=== PATIENT | female | born 1995 | race Caucasian/White ===

== ENCOUNTER 2019-03-09 18:30 | Inpatient (IN) | payer MEDICAID, OTHER ==
[2019-03-09] MEDS ORDERED: HYDROmorphONE 1 MG/ML SYG ×2 (18:56→20:17)
[2019-03-09 19:31] LABS: ADD MAN DIFF? NO
[2019-03-09 19:34] LABS: WHITE BLOOD COUNT 13.2 10^3/ul (4.8-10.8)
[2019-03-09 19:34] LABS: BASOPHILS % 0.2 % (0.0-2.0); EOSINOPHILS # 0.1 10^3/ul (0.0-0.5); EOSINOPHILS % 0.6 % (0.0-7.0); HEMOGLOBIN 14.1 g/dl (12.0-16.0); LYMPHOCYTES # 3.4 10^3/ul (0.8-2.9); LYMPHOCYTES % 25.5 % (15.0-51.0); MEAN CORPUSCULAR HEMOGLOBIN 30.5 pg (29.0-33.0); MEAN CORPUSCULAR HGB CONC 34.4 g/dl (32.0-37.0); MEAN CORPUSCULAR VOLUME 88.6 fl (82.0-101.0); MEAN PLATELET VOLUME 9.9 fl (7.4-10.4); MONOCYTE # 0.8 10^3/ul (0.3-0.9); MONOCYTES % 6.1 % (0.0-11.0); NEUTROPHIL # 8.9 10^3/ul (1.6-7.5); PLATELET COUNT 356 10^3/UL (140-415); RED BLOOD COUNT 4.63 10^6/ul (4.20-5.40)
[2019-03-09 19:37] LABS: PARTIAL THROMBOPLASTIN TIME 25.8 Sec (23.0-35.0); PROTIME 13.3 Sec (11.9-14.9)
[2019-03-09 19:42] LABS: ALANINE AMINOTRANSFERASE 19 IU/L (13-69); ALBUMIN 4.6 g/dl (3.3-4.9); ALBUMIN/GLOBULIN RATIO 1.15; ALKALINE PHOSPHATASE 87 IU/L (42-121); ANION GAP 14 (5-13); ASPARTATE AMINO TRANSFERASE 27 IU/L (15-46); BILIRUBIN,INDIRECT 0.3 mg/dl (0-1.1); BILIRUBIN,TOTAL 0.3 mg/dl (0.2-1.3); BLOOD UREA NITROGEN 12 mg/dl (7-20); CARBON DIOXIDE 22 mmol/L (21-31); CHLORIDE 105 mmol/L (97-110); CREATININE 0.56 mg/dl (0.44-1.00); Estimated GFR > 60 mL/min (>60); GLUCOSE 111 mg/dl (70-220); LIPASE 40 U/L (23-300); POTASSIUM 3.2 mmol/L (3.5-5.1); SODIUM 141 mmol/L (135-144); TOTAL PROTEIN 8.6 g/dl (6.1-8.1)
[2019-03-09 19:53] LABS: TROPONIN-I < 0.012 ng/ml (0.000-0.120)
[2019-03-09] MEDS ORDERED: NACL 0.9% 3 ML SYG IV (20:30)
[2019-03-09] MEDS ORDERED: HYDROCODONE/APAP (5/325) TAB PO ×2 (20:30)
[2019-03-09] MEDS: POTASSIUM CHLORIDE (SR) 20 MEQ TAB PO (20:32)
[2019-03-09] MEDS ORDERED: ACETAMINOPHEN 325 MG TAB PO (21:00)
[2019-03-09] MEDS ORDERED: HEPARIN 5,000 UNIT/1 ML VIAL SC (21:00)
[2019-03-09] MEDS ORDERED: ONDANSETRON 4 MG INJ IV (21:00)
[2019-03-09] MEDS: SOD CHLORIDE 0.9% 1,000 ML IV ×2 (21:09→23:46)
[2019-03-09 21:20] LABS: ADD UMIC YES; UR ASCORBIC ACID NEGATIVE (NEGATIVE); UR BACTERIA FEW /HPF (NONE SEEN); UR BILIRUBIN (Dip) NEGATIVE (NEGATIVE); UR BLOOD (Dip) NEGATIVE (NEGATIVE); UR CLARITY SLIGHTLY CLOUDY (CLEAR); UR COLOR YELLOW (YELLOW); UR GLUCOSE (Dip) NEGATIVE (NEGATIVE); UR KETONES (Dip) TRACE mg/dL (NEGATIVE); UR LEUKOCYTE ESTERASE (Dip) TRACE Leu/ul (NEGATIVE); UR MUCUS FEW /HPF (NONE SEEN); UR NITRITE (Dip) NEGATIVE (NEGATIVE); UR RBC 1 /HPF (0-5); UR TOTAL PROTEIN (Dip) NEGATIVE (NEGATIVE); UR UROBILINOGEN (Dip) NEGATIVE (NEGATIVE); UR WBC 1 /HPF (0-5)
[2019-03-09 21:33] LABS: LACTIC ACID 1.5 mmol/L (0.5-2.0)
[2019-03-09] MEDS: HYDROmorphONE 2 MG/ML SYG IV (22:04)
[2019-03-09] MEDS: CEFTRIAXONE 1 GM/50 ML (PMX) 50 ML IVPB (23:59)
[2019-03-09] MEDS: ONDANSETRON 4 MG INJ IV (23:59)
[2019-03-10] MEDS: DIAZEPAM 2 MG TAB PO (00:19)
[2019-03-10] MEDS: DIAZEPAM 5 MG/ML SYG IV ×2 (00:39→00:48)
[2019-03-10] MEDS: HYDROmorphONE 1 MG/ML SYG IV ×3 (03:47→12:17)
[2019-03-10 05:10] LABS: ADD MAN DIFF? NO
[2019-03-10 05:14] LABS: WHITE BLOOD COUNT 10.5 10^3/ul (4.8-10.8)
[2019-03-10 05:14] LABS: BASOPHILS % 0.2 % (0.0-2.0); HEMATOCRIT 35.6 % (37.0-47.0); HEMOGLOBIN 12.2 g/dl (12.0-16.0); LYMPHOCYTES # 1.2 10^3/ul (0.8-2.9); LYMPHOCYTES % 11.6 % (15.0-51.0); MEAN CORPUSCULAR HEMOGLOBIN 30.9 pg (29.0-33.0); MEAN CORPUSCULAR HGB CONC 34.3 g/dl (32.0-37.0); MEAN CORPUSCULAR VOLUME 90.1 fl (82.0-101.0); MEAN PLATELET VOLUME 9.8 fl (7.4-10.4); MONOCYTE # 0.9 10^3/ul (0.3-0.9); MONOCYTES % 8.5 % (0.0-11.0); NEUTROPHIL # 8.3 10^3/ul (1.6-7.5); NEUTROPHILS % 79.3 % (39.0-77.0); PLATELET COUNT 310 10^3/UL (140-415); RED BLOOD COUNT 3.95 10^6/ul (4.20-5.40)
[2019-03-10 06:17] LABS: B-TYPE NATRIURETIC PEPTIDE 92 PG/ML (0-125)
[2019-03-10 06:40] LABS: ALANINE AMINOTRANSFERASE 16 IU/L (13-69); ALBUMIN 3.8 g/dl (3.3-4.9); ALBUMIN/GLOBULIN RATIO 1.05; ALKALINE PHOSPHATASE 71 IU/L (42-121); ANION GAP 10 (5-13); ASPARTATE AMINO TRANSFERASE 28 IU/L (15-46); BILIRUBIN,INDIRECT 0.3 mg/dl (0-1.1); BILIRUBIN,TOTAL 0.3 mg/dl (0.2-1.3); BLOOD UREA NITROGEN 8 mg/dl (7-20); CARBON DIOXIDE 23 mmol/L (21-31); CHLORIDE 107 mmol/L (97-110); CREATININE 0.43 mg/dl (0.44-1.00); Estimated GFR > 60 mL/min (>60); GLUCOSE 122 mg/dl (70-220); PHOSPHORUS 3.4 mg/dl (2.5-4.9); POTASSIUM 3.8 mmol/L (3.5-5.1); SODIUM 140 mmol/L (135-144); TOTAL PROTEIN 7.4 g/dl (6.1-8.1)
[2019-03-10] MEDS: SOD CHLORIDE 0.9% 1,000 ML IV ×2 (07:01→16:28)
[2019-03-10] MEDS: ONDANSETRON 4 MG INJ IV (10:14)
[2019-03-10 11:58] LABS: HEMOGLOBIN A1C 5.1 % (0-5.9)
[2019-03-10] MEDS: CEFTRIAXONE 500 MG in SOD CHLORIDE 0.9% 50 ML IVPB (12:25)
[2019-03-10] MEDS ORDERED: FENTAnyl 50 MCG/ML VIAL (18:40)
[2019-03-10] MEDS ORDERED: NEOSTIGMINE 3 MG/3 ML SYRINGE (18:40)
[2019-03-10] MEDS ORDERED: GLYCOPYRROLATE 0.4 MG INJ (18:40)
[2019-03-10] MEDS ORDERED: MIDAZOLAM 1 MG/ML 2 ML INJ (18:40)
[2019-03-10] MEDS ORDERED: CEFAZOLIN 1 GM INJ (18:40)
[2019-03-10] MEDS ORDERED: PROPOFOL 20 ML (18:40)
[2019-03-10] MEDS ORDERED: ROCURONIUM 50 MG INJ (18:40)
[2019-03-10] MEDS ORDERED: DEXAMETHASONE 4 MG/ML 5 ML INJ (18:41)
[2019-03-10] MEDS ORDERED: ONDANSETRON 4 MG INJ (18:41)
[2019-03-10] MEDS ORDERED: morphine SULFATE/PF (10 MG/10 ML) INJ (18:42)
[2019-03-10] MEDS: POLYMYXIN/BACITRACIN 1L IRRIG IRR (19:29)
[2019-03-10] MEDS ORDERED: NALOXONE (0.4 MG/ML) INJ IV (19:30)
[2019-03-10] MEDS ORDERED: DIPHENHYDRAMINE 50 MG INJ IV ×2 (19:30)
[2019-03-10] MEDS ORDERED: MEPERIDINE 25 MG INJ IV (19:30)
[2019-03-10] MEDS ORDERED: OXYCODONE/ACETAMINOPHEN (5/325) TAB PO ×2 (19:30)
[2019-03-10] MEDS ORDERED: ZOLPIDEM 5 MG TAB PO (19:30)
[2019-03-10] MEDS ORDERED: KETOROLAC 30 MG INJ IV (19:30)
[2019-03-10] MEDS ORDERED: ALBUTEROL 0.083% (NEB) 2.5 MG/3 ML AMP HHN (19:30)
[2019-03-10] MEDS ORDERED: EPHEDrine SULFATE 50 MG/5 ML SYG IV (19:30)
[2019-03-10] MEDS ORDERED: FENTAnyl 50 MCG/ML VIAL IV ×3 (19:30)
[2019-03-10] MEDS ORDERED: ONDANSETRON 4 MG INJ IV (19:30)
[2019-03-10] MEDS ORDERED: IPRATROPIUM (NEB) 0.5 MG/2.5 ML AMP HHN (19:30)
[2019-03-10] MEDS ORDERED: TRIMETHOBENZAMIDE 100 MG/ML VIAL IM ×2 (19:30)
[2019-03-10] MEDS ORDERED: hydrALAzine 20 MG INJ IV (19:30)
[2019-03-10] MEDS ORDERED: HYDROmorphONE 1 MG/5 ML IV SYRINGE IV ×3 (19:30)
[2019-03-10] MEDS ORDERED: MIDAZOLAM 1 MG/ML 2 ML INJ IV (19:30)
[2019-03-10] MEDS ORDERED: NALBUPHINE HCL (10 MG/1 ML) INJ IV (19:30)
[2019-03-10] MEDS ORDERED: LABETALOL HCL 20MG INJ IV (19:30)
[2019-03-10] MEDS ORDERED: HYDROmorphONE 0.5 MG/0.5 ML SYG IV ×2 (19:30)
[2019-03-10] MEDS ORDERED: POLYMYXIN/BACITRACIN 1L IRRIG (23:31)
[2019-03-11] MEDS ORDERED: SUGAMMADEX SODIUM 200 MG/2 ML VIAL IV (00:10)
[2019-03-11] MEDS: ONDANSETRON 4 MG INJ IV ×2 (00:53→01:11)
[2019-03-11] MEDS ORDERED: oxyCODONE 15 MG TAB PO (01:00)
[2019-03-11] MEDS: SOD CHLORIDE 0.9% 1,000 ML IV (04:19)
[2019-03-11 05:11] LABS: ADD MAN DIFF? NO
[2019-03-11 05:22] LABS: WHITE BLOOD COUNT 10.4 10^3/ul (4.8-10.8)
[2019-03-11 05:22] LABS: ABNORMAL IP MESSAGE 1; BASOPHILS % 0.1 % (0.0-2.0); HEMATOCRIT 34.8 % (37.0-47.0); HEMOGLOBIN 11.5 g/dl (12.0-16.0); LYMPHOCYTES # 0.5 10^3/ul (0.8-2.9); LYMPHOCYTES % 4.6 % (15.0-51.0); MEAN CORPUSCULAR HEMOGLOBIN 30.6 pg (29.0-33.0); MEAN CORPUSCULAR VOLUME 92.6 fl (82.0-101.0); MEAN PLATELET VOLUME 9.6 fl (7.4-10.4); MONOCYTE # 0.3 10^3/ul (0.3-0.9); NEUTROPHIL # 9.6 10^3/ul (1.6-7.5); NEUTROPHILS % 91.9 % (39.0-77.0); PLATELET COUNT 248 10^3/UL (140-415); RED BLOOD COUNT 3.76 10^6/ul (4.20-5.40); RED CELL DISTRIBUTION WIDTH 12.3 % (11.5-14.5)
[2019-03-11 05:27] LABS: POSITIVE DIFF @See below
[2019-03-11 05:33] LABS: ANION GAP 8 (5-13); BLOOD UREA NITROGEN 3 mg/dl (7-20); CALCIUM 8.8 mg/dl (8.4-10.2); CARBON DIOXIDE 25 mmol/L (21-31); CHLORIDE 107 mmol/L (97-110); CREATININE 0.42 mg/dl (0.44-1.00); Estimated GFR > 60 mL/min (>60); GLUCOSE 129 mg/dl (70-220); POTASSIUM 3.6 mmol/L (3.5-5.1); SODIUM 140 mmol/L (135-144)
[2019-03-11] MEDS: CEFAZOLIN 1 GM/50 ML (PMX) 50 ML IVPB ×3 (05:54→21:53)
[2019-03-11] MEDS: DEXAMETHASONE 10 MG/ML 1 ML INJ IV (09:40)
[2019-03-11] MEDS: ENOXAPARIN 40 MG/0.4 ML SYG SC (09:41)
[2019-03-11] MEDS: oxyCODONE 5 MG TAB PO ×2 (14:08→20:34)
[2019-03-11] MEDS: PHENAZOPYRIDINE 100 MG TAB PO (17:52)
[2019-03-11 20:52] LABS: ADD UMIC YES; UR ASCORBIC ACID NEGATIVE (NEGATIVE); UR BACTERIA FEW /HPF (NONE SEEN); UR BILIRUBIN (Dip) NEGATIVE (NEGATIVE); UR BLOOD (Dip) 3+ mg/dL (NEGATIVE); UR CLARITY CLEAR (CLEAR); UR COLOR YELLOW (YELLOW); UR GLUCOSE (Dip) NEGATIVE (NEGATIVE); UR KETONES (Dip) TRACE mg/dL (NEGATIVE); UR LEUKOCYTE ESTERASE (Dip) NEGATIVE Leu/ul (NEGATIVE); UR NITRITE (Dip) NEGATIVE (NEGATIVE); UR RBC 88 /HPF (0-5); UR SPECIFIC GRAVITY (Dip) 1.008 (1.003-1.030); UR SQUAMOUS EPITHELIAL CELL FEW /HPF (FEW); UR TOTAL PROTEIN (Dip) NEGATIVE (NEGATIVE); UR UROBILINOGEN (Dip) NEGATIVE (NEGATIVE); UR WBC 2 /HPF (0-5)
[2019-03-12] MEDS: oxyCODONE 5 MG TAB PO ×2 (04:10→10:32)
[2019-03-12] MEDS: ENOXAPARIN 40 MG/0.4 ML SYG SC (08:23)
[2019-03-12] MEDS: SOD CHLORIDE 0.9% 500 ML IV (11:02)
[2019-03-12] MEDS: HYDROCODONE/APAP (5/325) TAB PO ×2 (17:09→22:09)
[2019-03-12] MEDS: ACETAMINOPHEN 325 MG TAB PO (21:03)
[2019-03-12 21:50] LABS: TROPONIN-I < 0.012 ng/ml (0.000-0.120)
[2019-03-12] MEDS: ASPIRIN (EC) 81 MG TAB PO (23:40)
[2019-03-13 05:05] LABS: ADD MAN DIFF? NO
[2019-03-13 05:07] LABS: WHITE BLOOD COUNT 6.6 10^3/ul (4.8-10.8)
[2019-03-13 05:07] LABS: BASOPHILS % 0.3 % (0.0-2.0); EOSINOPHILS # 0.1 10^3/ul (0.0-0.5); EOSINOPHILS % 1.5 % (0.0-7.0); HEMATOCRIT 32.2 % (37.0-47.0); HEMOGLOBIN 10.7 g/dl (12.0-16.0); LYMPHOCYTES # 1.9 10^3/ul (0.8-2.9); LYMPHOCYTES % 29.5 % (15.0-51.0); MEAN CORPUSCULAR HEMOGLOBIN 30.9 pg (29.0-33.0); MEAN CORPUSCULAR HGB CONC 33.2 g/dl (32.0-37.0); MEAN CORPUSCULAR VOLUME 93.1 fl (82.0-101.0); MEAN PLATELET VOLUME 9.7 fl (7.4-10.4); MONOCYTE # 0.5 10^3/ul (0.3-0.9); MONOCYTES % 7.8 % (0.0-11.0); NEUTROPHILS % 60.6 % (39.0-77.0); PLATELET COUNT 260 10^3/UL (140-415); RED BLOOD COUNT 3.46 10^6/ul (4.20-5.40); RED CELL DISTRIBUTION WIDTH 12.5 % (11.5-14.5)
[2019-03-13 05:31] LABS: CHOLESTEROL 131 mg/dl (100-200)
[2019-03-13 05:31] LABS: CHOL/HDL RATIO 2.9 RATIO; HDL CHOLESTEROL 45 mg/dl (33-83); LDL CHOLESTEROL,CALCULATED 66 mg/dl; TRIGLYCERIDES 100 mg/dl (0-149)
[2019-03-13 05:38] LABS: TROPONIN-I < 0.012 ng/ml (0.000-0.120)
[2019-03-13] MEDS: HYDROCODONE/APAP (5/325) TAB PO ×2 (08:35→16:13)
[2019-03-13] MEDS: ENOXAPARIN 40 MG/0.4 ML SYG SC (08:38)
[2019-03-13] MEDS: MAGNESIUM HYDROXIDE 30ML CUP PO (13:04)
[2019-03-13] MEDS: DOCUSATE SODIUM 100 MG CAP PO (13:04)
== END 2019-03-13 19:00 | disposition home or self-care (01) | DRG 481 ==
LOC: E/R 18:30 → MS1 20:46
PROC: 0QS806Z Reposition Right Femoral Shaft with Intramedullary Internal Fixation Device, Open Approach (ICD-10-PCS; principal; 2019-03-10 00:15)
DX: S72.321A Displaced transverse fracture of shaft of right femur, initial encounter for closed fracture (principal); N39.0 Urinary tract infection, site not specified; R65.10 Systemic inflammatory response syndrome (SIRS) of non-infectious origin without acute organ dysfunction; I51.7 Cardiomegaly; E66.9 Obesity, unspecified; Z68.30 Body mass index [BMI] 30.0-30.9, adult; W01.0XXA Fall on same level from slipping, tripping and stumbling without subsequent striking against object, initial encounter; Y93.66 Activity, soccer
CPT/HCPCS: 71045; 72170; 73550; 73562; 80048; 80053; 80061; 81001; 83036; 83605; 83690; 83735; 83880; 84100; 84484; 84703; 85025; 85610; 85730; 87040-91; 87086; 93005; 93306; 97110; 97116; 97161; 97530; 99285-25